=== PATIENT | male | born 1990 | race Caucasian/White ===

== ENCOUNTER 2017-10-22 11:48 | Emergency (ER) | payer SELFPAY ==
[~2017-10-22] VITALS: Ht 177.8 cm; Wt 106.8 kg
[~2017-10-22 11:48] MED LIST: AMOXICILLIN 8751 TAB PO; NAPROSYN500 MG PO; NO HOME MEDICATIONS; PROMETHAZINE12.5 M5 PO
[2017-10-22 11:50] VITALS: BP 115/74; PULSE 83; TEMP 98.2
[2017-10-22] MEDS ORDERED: BACTRIM DS 8001 TAB PO (12:16)
== END 2017-10-22 12:34 | disposition home or self-care (01) ==
LOC: COL.ER 11:48
DX: L03.011 Cellulitis of right finger (principal)

== ENCOUNTER 2017-10-26 18:17 | Emergency (ER) | payer OTHER ==
[~2017-10-26] VITALS: Ht 177.8 cm; Wt 102.3 kg
[~2017-10-26 18:17] MED LIST changes: +BACTRIM DS 8001 TAB PO
[2017-10-26 18:19] VITALS: BP 113/74; TEMP 97.6
[2017-10-26 19:43] VITALS: PULSE 78
== END 2017-10-26 19:44 | disposition home or self-care (01) ==
LOC: COL.ER 18:17
DX: L03.012 Cellulitis of left finger (principal)

== ENCOUNTER 2018-03-01 17:50 | Emergency (ER) | payer BC ==
[~2018-03-01] VITALS: Ht 177.8 cm; Wt 109.1 kg
[2018-03-01 17:55] VITALS: TEMP 98.7
[2018-03-01] MEDS ORDERED: TUMS500 MG (18:07)
[2018-03-01] MEDS ORDERED: ALKA-SELTZER GO1 TE1 PO (18:07)
[2018-03-01 18:27] LABS: BASO # 0.1 (0.0-0.2); BASO % 0.7 % (0.0-2.0); EOS # 0.3 (0.0-0.7); EOS % 4.6 % (0-4.0); GRAN # 4.2 (1.4-6.5); GRAN % 58.9 % (42.2-75.2); HEMATOCRIT 41.7 % (42.0-52.0); LYMPH # 1.9 (1.2-3.4); LYMPH % 26.7 % (20.0-51.0); MEAN CELL VOLUME 94 fl (80.0-100.0); MEAN CORPUSCULAR HEMOGLOBIN 34 pg (27.0-31.0); MEAN CORPUSCULAR HGB CONC 36 g/dl (33.0-37.0); MEAN PLATELET VOLUME 9.1 fl (7.4-10.4); MONO # 0.6 (0.1-0.6); PLATELET COUNT 219 K/mm3 (130-400); RED BLOOD COUNT 4.46 M/mm3 (4.20-5.60); REDCELL DISTRIBUTION WIDTH-CV 12.3 % (11.5-14.5)
[2018-03-01 18:29] LABS: ALBUMIN 3.4 gm/dL (3.5-5.0); BILIRUBIN,TOTAL 0.3 mg/dL (0.0-1.0); CALCIUM 8.7 mg/dL (8.4-10.2); CREATININE, serum 0.89 mg/dL (0.66-1.25); POTASSIUM 3.9 mmol/L (3.4-5.0); TOTAL PROTEIN 6.4 gm/dL (6.4-8.2)
[2018-03-01] MEDS ORDERED: PHENERGAN 25 TA25 MG PO (18:53)
[2018-03-01 19:10] VITALS: BP 109/63; PULSE 70
== END 2018-03-01 19:11 | disposition home or self-care (01) ==
LOC: COL.ER 17:50
PROVIDERS: Emergency Medicine
DX: R10.13 Epigastric pain (principal); F17.220 Nicotine dependence, chewing tobacco, uncomplicated

== ENCOUNTER → 2018-10-19 | Outpatient (CLI) | payer OTHER ==
[~2018-10-19] MED LIST changes: +ALKA-SELTZER GO1 TE1 PO; +PHENERGAN 25 TA25 MG PO; +TUMS500 MG
== END ==
LOC: COL.RAD 15:54
DX: S09.90XA Unspecified injury of head, initial encounter (principal)

== ENCOUNTER 2018-12-26 10:42 | Outpatient (CLI) | payer BC ==
[~2018-12-26] VITALS: Ht 177.8 cm; Wt 107.8 kg
[2018-12-26 11:20] LABS: BASO % 0.3 % (0.0-2.0); EOS # 0.1 (0.0-0.7); EOS % 1.3 % (0-4.0); GRAN # 2.5 (1.4-6.5); GRAN % 63.2 % (42.2-75.2); HEMATOCRIT 42.8 % (42.0-52.0); HEMOGLOBIN 14.7 g/dl (13.5-18.0); LYMPH # 0.8 (1.2-3.4); LYMPH % 19.6 % (20.0-51.0); MEAN CELL VOLUME 96 fl (80.0-100.0); MEAN CORPUSCULAR HEMOGLOBIN 33 pg (27.0-31.0); MEAN CORPUSCULAR HGB CONC 34 g/dl (33.0-37.0); MONO # 0.6 (0.1-0.6); MONO % 15.3 % (1.7-9.3); PLATELET COUNT 173 K/mm3 (130-400); RED BLOOD COUNT 4.45 M/mm3 (4.20-5.60); REDCELL DISTRIBUTION WIDTH-CV 12.5 % (11.5-14.5)
[2018-12-26 11:30] VITALS: BP 102/52; PULSE 57; TEMP 98.2
[2018-12-26 11:40] LABS: CALCIUM 8.8 mg/dL (8.4-10.2); CREATININE, serum 0.85 (0.66-1.25); POTASSIUM 4.2 mmol/L (3.4-5.0)
--- NOTE | 2018-12-26 14:00 | NUR ---
DR LUNA CALLED ON CONDITION AND RESULTS OF TEST, NEW ORDERS RECIEVED, ZOFRAN 4MG GIVEN AT 1420, IN ROOM, DECLINES ICE OR DRINK AT THIS TIME.
--- NOTE | 2018-12-26 15:30 | NUR ---
IV D'CD INTACT, PT UP AD THERON, NO C/O DIZZINESS, HERE, DISCHARGED AMB. WITH
== END 2018-12-26 15:30 | disposition home or self-care (01) ==
LOC: EUO 10:42
PROVIDERS: Family Medicine
DX: K52.9 Noninfective gastroenteritis and colitis, unspecified (principal)
CPT/HCPCS: J2405; J7030

== ENCOUNTER 2019-03-22 21:09 | Emergency (ER) | payer BC ==
[~2019-03-22] VITALS: Ht 177.8 cm; Wt 104.5 kg
[2019-03-22 21:12] VITALS: BP 126/79; TEMP 97.2
[2019-03-22] MEDS ORDERED: DOXYCYCLINE HY100 MG PO (21:32)
[2019-03-22] MEDS ORDERED: CEPHALEXIN500 M1 PO (21:32)
[2019-03-22 21:37] VITALS: PULSE 88
== END 2019-03-22 21:37 | disposition home or self-care (01) ==
LOC: COL.ER 21:09
DX: S80.861A Insect bite (nonvenomous), right lower leg, initial encounter (principal); W57.XXXA Bitten or stung by nonvenomous insect and other nonvenomous arthropods, initial encounter

== ENCOUNTER 2020-03-09 20:22 | Emergency (ER) | payer BC ==
[~2020-03-09] VITALS: Ht 177.8 cm; Wt 111.4 kg
[~2020-03-09 20:22] MED LIST changes: +CEPHALEXIN500 M1 PO; +DOXYCYCLINE HY100 MG PO
[2020-03-09 20:27] VITALS: TEMP 98.4
[2020-03-09 21:09] LABS: BASO % 0.6 % (0.0-2.0); EOS # 0.2 (0.0-0.7); EOS % 4.1 % (0-4.0); GRAN # 2.8 (1.4-6.5); GRAN % 52.5 % (42.2-75.2); HEMATOCRIT 42.7 % (42.0-52.0); HEMOGLOBIN 15.1 g/dl (13.5-18.0); LYMPH # 1.7 (1.2-3.4); LYMPH % 32.5 % (20.0-51.0); MEAN CELL VOLUME 94 fl (80.0-100.0); MEAN CORPUSCULAR HEMOGLOBIN 33 pg (27.0-31.0); MEAN CORPUSCULAR HGB CONC 35 g/dl (33.0-37.0); MEAN PLATELET VOLUME 9.6 fl (7.4-10.4); MONO # 0.5 (0.1-0.6); MONO % 10.1 % (1.7-9.3); PLATELET COUNT 201 K/mm3 (130-400); RED BLOOD COUNT 4.56 M/mm3 (4.20-5.60); REDCELL DISTRIBUTION WIDTH-CV 12.1 % (11.5-14.5)
[2020-03-09] MEDS ORDERED: FLONASEALLERGY NS (21:14)
[2020-03-09] MEDS ORDERED: PROTONIX 40MG T40 MG PO (21:14)
[2020-03-09 21:21] LABS: ALANINE AMINOTRANSFERASE 26 U/L (4-49); ALKALINE PHOSPHATASE 78 U/L (50-136); ANION GAP 8 mmol/L (7-16); AST,SGOT 29 U/L (15-37); BILIRUBIN,TOTAL 0.4 mg/dL (0.0-1.0); BLOOD UREA NITROGEN 13 mg/dL (9-20); CALCIUM 9.3 mg/dL (8.4-10.2); CARBON DIOXIDE 25 mmol/L (22-30); CHLORIDE 105 mmol/L (98-107); CREATINE KINASE 92 U/L (55-170); CREATININE, serum 0.76 (0.66-1.25); GLUCOSE 97 mg/dL (74-106); SODIUM 137 mmol/L (137-145); TOTAL PROTEIN 7.4 gm/dL (6.4-8.2)
[2020-03-09 21:33] LABS: TROPONIN-I < 0.012 ng/mL (0.000-0.035)
[2020-03-09 21:38] LABS: INR 1.1 (0.8-3.0); PROTHROMBIN TIME 12.1 SECONDS (9.7-12.8)
[2020-03-09 21:44] LABS: D-DIMER < 200.00 ng/mLDDu (200-230)
[2020-03-09 22:30] VITALS: BP 109/63; PULSE 64
== END 2020-03-09 22:30 | disposition home or self-care (01) ==
LOC: COL.ER 20:22
PROVIDERS: Emergency Medicine
DX: R55 Syncope and collapse (principal); F17.220 Nicotine dependence, chewing tobacco, uncomplicated
CPT/HCPCS: J7030